=== PATIENT | female | born 1975 | race Caucasian/White ===

== ENCOUNTER 2025-03-18 00:48 | Day surgery (SDC) | payer BC, SELFPAY ==
[2025-03-11 09:12] VITALS: BMI 30.5
--- OUTSIDE RECORDS SUMMARY | 2025-03-18 00:51 | XMS_ITS | Clinical Summary ---
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 This disclosure is being madepursuant to the Care Everywhere program and may not contain all information available regarding this patient. Last updated 18.[facility] Social History Tobacco Use Types Packs/Day Years Used Date Smoking Tobacco: Never Assessed Comments Unknown Sex and Gender Information Value Date Recorded Sex Assigned at Not on file Legal Sex Female 12:20 PM CDT Gender Identity Not on file Sexual Orientation Not on file Plan of Treatment Health Maintenance Due Date Last Done Comments COLOGUARD (AGES 45-75) - COL ON CA SCREENING 1973 COLON MONITORING 1973 COLONOSCOPY - COLON CA SCREENING 1973 CT COLONOGRAPHY - COLON CA SCREENING 1973 Colorectal Cancer Screening 1973 FIT - COLON CA SCREENING 1973 FLEX SIG - COLON CA SCREENING 1973 LIPID TESTING 1973 MAMMOGRAM 1973 HIV SCREENING 01/08/1988 HEPATITIS C SCREENING 01/03/1991 DTAP/TDAP/TD VACCINES (1 - Tdap) 01/08/1992 HEPATITIS B VACCINE (1 of 3 - 19+ 3-dose series) 01/08/1992 PNEUMOCOCCAL VACCINE 50+ (1 of 1 - PCV) 2023 ZOSTER VACCINE (1 of 2) 2023 COVID-19 VACCINE (1 - 2023-2 5 season) 2024 DEPRESSION SCREENING 10/13/2024 INFLUENZA VACCINE (Season Ended) 2025 HIB VACCINE Aged Out No longer eligi ble based on patient's age to complete this topic HPV VACCINE Aged Out No longer eligi ble based on patient's age to complete this topic MENINGOCOCCAL (Group B) VACC INE SHARED DECISION-MAKING Aged Out No longer eligibl e based on patient's age to complete this topic MENINGOCOCCAL GROUPS A/C/Y/W VACCINE Aged Out No longer eligible b ased on patient's age to complete this topic Insurance [facility]
--- OUTSIDE RECORDS SUMMARY | 2025-03-18 00:51 | XMS_ITS | Encounter Summary ---
Author Organization [facility] Address [address] [place] [address] Care Team Providers Care Vp Treasurer Name Role Phone Unavailable Primary Care Provider Unavailabl e Encounter Details Date Type Department Care Team (Late st Contact Info) Description 06/28/2019 Lab Requisition [facility] [address] [place] [id number] Tarun Felix MD [address] [place] [address] Social History Tobacco Use Types Packs/Day Years Used Date Smoking Tobacco: Never Assessed Comments Unknown Sex and Gender Information Value Date Recorded Sex Assigned at Not on file Legal Sex Female 12:20 PM CDT Gender Identity Not on file Sexual Orientation Not on file documented as of this encounter Plan of Treatment Not on file documented as of this encounter Procedures Procedure Name Priority Date/Time Associated Diagnosis Comments DERMATOPATHOLOGY Routine 06/28/2019 12:0 0 AM CDT documented in this encounter Results * DERMATOPATHOLOGY (06/28/2019 12:00 AM CDT) Case Report Dermatopathology Report Case: [id number] Authorizing Provider: Tarun Felix MD Collected: 06/28/2019 12:00 AM Ordering Location: [facility] Received: 06/28/2019 12:40 PM Pathologist: Andry Edward MD Specimens: A) - Skin, right lat neck B) - Skin, left lower back 9 4:02 PM CDT DERMATOPATHOLOGY LABORATORY Final Diagnosis Specimen A. SKIN, right lat neck: BASAL CELL CARCINOMA, NODULAR TYPE (C44.41) Specimen B. SKIN, left lower back: BASAL CELL CARCINOMA, PIGMENTED (C44.519) 9 4:02 PM CDT DERMATOPATHOLOGY LABORATORY at 1602 CDT Clinical History A: R/O BCC. B: R/O Pig BCC vs MM. 9 4:02 PM CDT DERMATOPATHOLOGY LABORATORY Gross Description Specimen A: Received is one formalin filled container labeled with the patient's name and designated right lat neck. The specimen consists of a shave biopsy measuring 5x4x2 mm. Jar 0. Specimen B: Received is one formalin filled container labeled with the patient's name and designated left lower back. The specimen consists of a shave biopsy (2 pieces) measuring [id number] and 22x8x2 mm. Jar 0. 9 4:02 PM CDT DERMATOPATHOLOGY LABORATORY Microscopic Description Specimen A. SKIN, right lat neck: Within the dermis there are aggregates of basaloid cells with a high nuclear to cytoplasmic ratio and peripheral palisading. Specimen B. SKIN, left lower back: There are aggregates of basaloid cells with a high nuclear to cytoplasmic ratio and peripheral palisading. There is abundant melanin. 4:02 PM CDT DERMATOPATHOLOGY LABORATORY Disclaimer An external and internal positive and negative controls are appropriate for the histochemical, immunohistochemical and immunofluorescence stain(s) in this case (if any), except where stated explicitly. The performance characteristics of the stain(s) cited in this report were developed and its performance characteristic determined by the Dermatopathology Laboratory at [facility], directed by Dr. Juan R Edward. These tests need not be, and therefore are not, approved by the [place] Food and Drug Administration. The tests are used for clinical purposes. Billing Codes Specimen Charges Stain Charges 97836 [id number] 1 1 9 4:02 PM CDT DERMATOPATHOLOGY LABORATORY Embedded Images 9 4:02 PM CDT DERMATOPATHOLOGY LABORATORY Pathology/Cytology TISSUE SPECIMEN FROM SKIN / Unknown 06/28/2019 06/28/2019 12:40 PM CDT Miscellaneous samples (specimen) TISSUE SPECIMEN FROM SKIN / Unknown 06/28/2019 06/28/2019 12:40 PM CDT Tarun Felix MD LAB - PATHOLOGY/CYTOLOGY ORDERAB LES Final Result DERMATOPATHOLOGY LABORATORY [facility] - Department of Dermatology [address] [place] [address], [address] [place] [address], [facility] [phone] documented in this encounter Visit Diagnoses Not on filedocumented in this encounter
[2025-03-18 07:15] VITALS: BP 139/84; PULSE 79; RESP 18; TEMP 36.1; O2SAT 100
[2025-03-18] MEDS: LACTATED RINGERS 1,000 ML 150 ML IV CONT (07:26)
--- NOTE | 2025-03-18 07:44 | WPDANESEPPF ---
Anes - Initial Pre Proc Eval Procedure: Operation Date: 03/18/25 08:30 Proposed Procedures p Screening Colonoscopy - Cb Genao MD Date/Time: 03/18/25 07:44 Surgeon: Cb Genao MD Pre Op Diagnosis: malignant neoplasm of colon Patient Data Age: 50 Gender: F Height: 1.6 m Weight: 77.3 kg Last Vital Signs Temp 36.1 C L 03/18/25 07:15 Pulse 79 03/18/25 07:15 Resp 18 03/18/25 07:15 BP 139/84 03/18/25 07:15 Pulse Ox 100 03/18/25 07:15 O2 Del Method Room Air 03/18/25 07:15 Allergies Allergy/AdvReac Type Severity Reaction Status Date / Time adhesive tape Allergy Intermediate Rash Verified 03/18/25 07:13 Home Medications ?Medication ?Instructions ?Recorded ?Confirmed ?Type Lactobacillus rhamnosus GG 15 1 cap PO DAILY 11/05/24 03/18/25 History billion cell sprinkle capsule (Culturelle) rosuvastatin 20 mg tablet 20 mg PO DAILY #90 tabs 03/03/25 03/18/25 Rx levocetirizine 5 mg tablet (Xyzal) 5 mg PO DAILY 03/11/25 03/18/25 History Patient hx anesthesia problems: none Family hx anesthesia problems: none Results Review: All pre-operative results and documents have been reviewed as part of the pre-operative evaluation. [facility] Past Medical History Medical History (Updated 03/18/25 @ 07:45 by William Frey MD) Obesity Melanoma Surgical History Surgical History (Updated 11/05/24 @ 10:13 by Ashu Noble MD) History of hysterectomy 2013- still has ovaries Family History Family History Mother Asthma Memory problem Grandparent COPD (chronic obstructive pulmonary disease) Social History Social History Smoking status: Never smoker Alcohol intake: current Substance use: never Substance use type: does not use Do You Feel Safe in your Home?: Yes Lack of Transportation: No Lack of Food: Never True Current Housing: I Have Housing Concerned About Future Housing: No Difficulty Paying Gas/Electric Bills: No Difficulty Paying for Meds: No Currently Unemployed: YES Education: High School Diploma/GED Difficulty w/ Childcare or Family Care: No Living arrangements: with family Occupation/Education: occupation Additional occupation/education comments: [employer]. 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 Gender identity (if verbalized by the patient): Female Sexual Orientation (if Verbalized by the Patient): Straight or Heterosexual Spiritual care concerns: No Anes - Eval Final PreProcedure Day of Procedure 03/18/25 07:44 Patient weight: obese Heart: regular rate and rhythm Lungs: clear to auscultation Airway: Mallampati scale class II Neurological: alert and oriented Last oral intake: >/= 8 hours Emergent: no Anesthetic plan: proceed Anesthesia type and monitoring: general GIVS and standard monitoring Results Review: All pre-operative results and documents have been reviewed as part of the pre-operative evaluation. Informed Consent: The patient's anesthetic plan and its attendant risks and benefits were discussed with the patient/family/POA. Questions were solicited and answers provided to the satisfaction of the patient/family/POA.
--- NOTE | 2025-03-18 08:20 | P.HP_ITS ---
H&P: HPI History of Present Illness Date/Time: 03/18/25 08:20 Chief Complaint: Screening colonoscopy Narrative: This is the patient's first colonoscopy. There are no GI symptoms and there is no family history of colorectal cancer. Review of Systems Review of Systems: All systems reviewed & are unremarkable except as noted in HPI and below PMFSH Past Medical History Medical History (Updated 03/18/25 @ 08:21 by Cb Genao MD) Obesity Melanoma Surgical History Surgical History (Updated 11/05/24 @ 10:13 by Ashu Noble MD) History of hysterectomy 2013- still has ovaries Family History Family History Mother Asthma Memory problem Grandparent COPD (chronic obstructive pulmonary disease) Social History Social History Smoking status: Never smoker Alcohol intake: current Substance use: never Substance use type: does not use Do You Feel Safe in your Home?: Yes Lack of Transportation: No Lack of Food: Never True Current Housing: I Have Housing Concerned About Future Housing: No Difficulty Paying Gas/Electric Bills: No Difficulty Paying for Meds: No Currently Unemployed: YES Education: High School Diploma/GED Difficulty w/ Childcare or Family Care: No Living arrangements: with family Occupation/Education: occupation Additional occupation/education comments: [employer]. 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 Gender identity (if verbalized by the patient): Female Sexual Orientation (if Verbalized by the Patient): Straight or Heterosexual Spiritual care concerns: No Meds Home Medications and Allergies Home Medications ?Medication ?Instructions ?Recorded ?Confirmed ?Type Lactobacillus rhamnosus GG 15 1 cap PO DAILY 11/05/24 03/18/25 History billion cell sprinkle capsule (Culturelle) rosuvastatin 20 mg tablet 20 mg PO DAILY #90 tabs 03/03/25 03/18/25 Rx levocetirizine 5 mg tablet (Xyzal) 5 mg PO DAILY 03/11/25 03/18/25 History Allergies Allergy/AdvReac Type Severity Reaction Status Date / Time adhesive tape Allergy Intermediate Rash Verified 03/18/25 07:13 Vital Signs Vital Signs - 24 hr 03/18/25 07:15 Temperature 97 F L Pulse Rate 79 Respiratory Rate 18 Blood Pressure 139/84 Pulse Oximetry 100 Oxygen Delivery Room Air Exam Const: General: cooperative and healthy appearing Resp: Effort & Inspection: normal respiratory effort and able to speak in complete sentences Auscultation: clear to auscultation bilaterally Cardio: Rate: regular rate Rhythm: regular rhythm GI: Inspection: normal to inspection GI Palp: No No hepatosplenomegaly present Auscultation: normal bowel sounds Rectal Exam: deferred Skin: General skin exam: normal color Psych: Appearance: grossly normal Mental Status: mental status grossly normal Assessment and Plan Assessment and plan (1) Encounter for screening colonoscopy: Code(s): Z12.11 - Encounter for screening for malignant neoplasm of colon Status: Acute Assessment and Plan: The patient is deemed a good candidate for the procedure. Consent signed. Will proceed.
[2025-03-18 08:47] VITALS: BP 136/88; PULSE 77; RESP 24; O2SAT 100
[2025-03-18 08:57] VITALS: BP 141/85; PULSE 71; RESP 22; O2SAT 100
[2025-03-18 09:07] VITALS: BP 138/74; PULSE 68; RESP 18; O2SAT 100
== END 2025-03-18 09:16 | disposition home or self-care (01) ==
PROVIDERS: PCP Family Medicine; Referring Provider Family Medicine; Visit Provider Internal Medicine Gastroenterology
PROC: 0DJD8ZZ Inspection of Lower Intestinal Tract, Via Natural or Artificial Opening Endoscopic (ICD-10-PCS; CPT 45378; principal; 2025-03-18 08:30)
DX: Z12.11 Encounter for screening for malignant neoplasm of colon (principal); E66.9 Obesity, unspecified; Z68.30 Body mass index [BMI] 30.0-30.9, adult
CPT/HCPCS: 45378; J2003; J2704; J7120